=== PATIENT | female | born 1975 | race Two or more races ===

== ENCOUNTER 2018-01-28 08:32 | Emergency (ER) | payer OTHER ==
[~2018-01-28] VITALS: Ht 157.5 cm; Wt 55.8 kg
[~2018-01-28 08:32] MED LIST: DICLOFENAC SODI50 MG PO; LEVSIN/SL0.125 MG PO; ORPH100T PO; PROTONIX40 MG PO; XANAX0.25 MG PO
[2018-01-28] MEDS ORDERED: CLONAZEPAM0.25 MG PO (08:47)
== END 2018-01-28 19:38 | disposition home or self-care (01) ==
LOC: ER 08:32
DX: K29.60 Other gastritis without bleeding (principal); R51 Headache

== ENCOUNTER → 2020-04-11 | Emergency (ER) | payer OTHER ==
[~2020-04-11] VITALS: Ht 157.5 cm; Wt 54.4 kg
[~2020-04-11] MED LIST changes: +CLONAZEPAM0.25 MG PO; +KETO10TA2 PO; +ORPHENADRINE C100 MG PO
== END | disposition home or self-care (01) ==
LOC: ER 03:45
DX: M62.838 Other muscle spasm (principal); M54.2 Cervicalgia

== ENCOUNTER 2021-12-07 09:02 | Emergency (ER) | payer OTHER ==
[~2021-12-07] VITALS: Ht 157.5 cm; Wt 55.3 kg
[2021-12-07] MEDS ORDERED: HYDROCORTISONE15 G3 TOP (09:54)
== END 2021-12-07 10:00 | disposition home or self-care (01) ==
LOC: ER 09:02
DX: R21 Rash and other nonspecific skin eruption (principal)

== ENCOUNTER 2021-12-09 20:58 | Emergency (ER) | payer OTHER ==
[~2021-12-09] VITALS: Ht 157.5 cm; Wt 54.9 kg
[~2021-12-09 20:58] MED LIST changes: +HYDROCORTISONE15 G3 TOP
== END 2021-12-09 22:33 | disposition home or self-care (01) ==
LOC: ER 20:58
DX: L50.9 Urticaria, unspecified (principal)

== ENCOUNTER 2024-03-01 08:06 | Emergency (ER) | payer OTHER ==
[~2024-03-01] VITALS: Ht 157.5 cm; Wt 59.0 kg
[2024-03-01 08:20] VITALS: BP 122/86; O2SAT 99
[2024-03-01] MEDS ORDERED: FAMOTIDINE/PF 20 MG in 0.9 % SODIUM CHLORIDE 8 ML IV PUSH STA (08:44)
[2024-03-01] MEDS ORDERED: 0.9 % SODIUM CHLORIDE 1,000 ML IV SCH (08:45)
[2024-03-01] MEDS ORDERED: BUTALB/ACETAMINOPHEN/CAFFEINE 1 TAB TABLET PO ONE (08:45)
[2024-03-01 09:29] LABS: HEMATOCRIT 41.2 % (36.0-45.00); HEMOGLOBIN 14.1 g/dL (12.0-15.00); MEAN CELL VOLUME 94.1 fL (80.00-100.00); MEAN CORPUSCULAR HEMOGLOBIN 32.3 pg (27.00-32.0); MEAN CORPUSCULAR HGB CONC 34.3 g/dl (32.0-36.0); PLATELET COUNT 286 K/uL (150-450); RED BLOOD COUNT 4.38 M/uL (4.00-6.00); RED CELL DISTRIBUTION WIDTH 13.4 % (11.5-14.5)
[2024-03-01 10:03] LABS: ALBUMIN 3.7 gm/dL (3.4-5.0); BILIRUBIN TOTAL 0.46 mg/dL (0.3-1.2); CALCIUM 9.1 mg/dL (8.5-10.1); CREATININE SERUM 0.92 mg/dL (0.55-1.02); GFR 65.43; GLOBULINA 4.4 G/DL (2.4-3.5); POTASSIUM 3.7 mEq/L (3.5-5.1); TOTAL PROTEIN 8.1 gm/dL (6.4-8.2)
== END 2024-03-01 10:59 | disposition home or self-care (01) ==
LOC: ER 08:08
PROVIDERS: General Practice
DX: B34.9 Viral infection, unspecified (principal); Z20.822 Contact with and (suspected) exposure to COVID-19